=== PATIENT | male | born 1980 | race Hispanic/Latino ===

== ENCOUNTER 2017-03-31 23:04 | Observation (INO) | payer BC, OTHER ==
[~2017-03-31] VITALS: Ht 165.1 cm; Wt 86.2 kg
[2017-03-31 23:31] LABS: BASOPHILS # (AUTO) 0.1 (0.0-0.1); BASOPHILS % 0.7 % (0.0-1.0); EOSINOPHILS # (AUTO) 0.2 (0.0-0.4); EOSINOPHILS % 1.4 % (0.0-6.0); HEMATOCRIT 43.9 % (38.2-49.6); HEMOGLOBIN 14.9 g/dL (14.0-18.0); LYMPHOCYTES # (AUTO) 4.1 (1.0-3.2); LYMPHOCYTES % 35.3 % (18.0-39.1); MEAN CORPUSCULAR HEMOGLOBIN 28.2 pg (28-32); MEAN CORPUSCULAR HGB CONC 33.9 g/dL (31-35); MONOCYTES # (AUTO) 0.8 (0.2-0.8); MONOCYTES % 6.7 % (4.4-11.3); NEUTROPHILS # (AUTO) 6.5 (2.1-6.9); NEUTROPHILS % 55.7 % (38.7-80.0); PLATELET COUNT 251 x10e3/uL (140-360); RED BLOOD COUNT 5.29 x10e6/uL (4.3-5.7); RED CELL DISTRIBUTION WIDTH 13.3 % (11.7-14.4)
[2017-03-31 23:51] LABS: ALANINE AMINOTRANSFERASE 70 IU/L (0-55); ALBUMIN 4.1 g/dL (3.5-5.0); ALBUMIN/GLOBULIN RATIO 0.9 (0.8-2.0); ALKALINE PHOSPHATASE 78 IU/L (40-150); ANION GAP 19.5 mmol/L (8-16); BLOOD UREA NITROGEN 12 mg/dL (7-26); BUN/CREATININE RATIO 13 (6-25); CALCIUM 9.5 mg/dL (8.4-10.2); CARBON DIOXIDE 21 mmol/L (22-29); CHLORIDE 105 mmol/L (98-107); CREATINE KINASE 452 IU/L (30-200); CREATININE, SERUM 0.92 mg/dL (0.72-1.25); EST GLOMERULAR FILTRATION RATE > 60 ML/MIN (60-); GLUCOSE 120 mg/dL (74-118); POTASSIUM 3.5 mmol/L (3.5-5.1); SODIUM 142 mmol/L (136-145)
[2017-03-31 23:54] LABS: TROPONIN I < 0.05 ng/mL (0.0-0.40)
--- NOTE | 2017-04-01 00:21 | Diagnostic Imaging Report ---
CHEST SINGLE (PORTABLE), 03/31/2017 11:10 PM Technique: CHEST SINGLE (PORTABLE) Comparison: 03/17/2016 Clinical history: Chest pain Findings: Unremarkable appearance of the heart, mediastinum, lungs and pleural spaces for technique. Impression: 1. Lines/Tubes: None 2. No acute abnormality. Signed by: Dr Nuris Barajas MD on 04/01/2017 12:18 AM
[2017-04-01 00:35] LABS: BILIRUBIN,URINE NEGATIVE (NEGATIVE); KETONES,URINE NEGATIVE (NEGATIVE); LEUKOCYTE ESTERASE ,URINE NEGATIVE (NEGATIVE); NITRITE,URINE NEGATIVE (NEGATIVE); PROTEIN,URINE DIPSTICK NEGATIVE (NEGATIVE); URINE UROBILINOGEN 0.2 mg/dL (0.2 - 1)
[2017-04-01 00:36] LABS: CLARITY,URINE HAZY (CLEAR); COLOR,URINE YELLOW (YELLOW)
[2017-04-01 00:39] LABS: AMPHETAMINES SCREEN,URINE NEGATIVE (NEGATIVE); BENZODIAZEPINES SCREEN,URINE NEGATIVE (NEGATIVE); CANNABINOIDS SCREEN,URINE NEGATIVE (NEGATIVE); PHENCYCLIDINE SCREEN,URINE NEGATIVE (NEGATIVE)
[2017-04-01 00:47] LABS: BACTERIA,URINE FEW /HPF; EPITHELIAL CELLS,URINE RARE /LPF; MUCUS,URINE MODERATE (RARE); RBC,URINE 0-5 /HPF (0-5); WBC,URINE (MAN) 0-5 /HPF (0-5)
[2017-04-01] MEDS ORDERED: ONDANSETRON HCL INJ 2 MG/ML VIAL IV PRN (01:45)
[2017-04-01] MEDS ORDERED: SODIUM CHLORIDE FLUSH 10 ML SYR INJ PRN (01:45)
[2017-04-01] MEDS ORDERED: MORPHINE SULFATE 2 MG/ML SYR IV PRN (01:45)
[2017-04-01] MEDS: FAMOTIDINE 20 MG/2 ML VIAL IV SCH ×2 (02:51→13:58)
[2017-04-01] MEDS: ASPIRIN 81 MG CHEW TAB PO ONE ×2 (02:51→03:03)
[2017-04-01 03:25] VITALS: BP 126/60
[2017-04-01 03:42] VITALS: BP 126/60
[2017-04-01] MEDS ORDERED: LEVOTHYROXINE112 MCG PO (05:17)
[2017-04-01 07:59] VITALS: BP 121/75
[2017-04-01] MEDS ORDERED: ASPIRIN 81 MG ENTERIC COATED PO SCH (09:00)
[2017-04-01 09:39] LABS: CREATINE KINASE MB 2.6 ng/mL (0.00-5.00); TROPONIN I 0.008 ng/mL (0-0.300)
[2017-04-01 12:15] VITALS: BP 126/66
[2017-04-01 15:33] VITALS: BP 128/61
[2017-04-01 17:51] LABS: CREATINE KINASE MB 2.2 ng/mL (0.00-5.00); TROPONIN I 0.012 ng/mL (0-0.300)
[2017-04-01] MEDS ORDERED: REGLAN10 MG PO (17:57)
[2017-04-01] MEDS ORDERED: NEXIUM40 MG PO (17:57)
--- NOTE | 2017-04-01 19:14 | History and Physical ---
SHORTSTAY SUMMARY PRIMARY CARE PROVIDER: At the [facility]. ADMITTING DIAGNOSES: 1. Chest pain rule out acute coronary syndrome. 2. Gastroesophageal reflux disease. 3. Hypothyroidism due to history of thyroidectomy. DISCHARGE DIAGNOSES 1. Chest pain rule out acute coronary syndrome. 2. Gastroesophageal reflux disease. 3. Hypothyroidism due to history of thyroidectomy. 4. Myocardial infarction ruled out. BRIEF HISTORY: Mr. Capone is a 37-year-old gentleman who has been having intermittent chest pain for the last couple of weeks, not particularly brought on by exertion. He seems to have issues in the morning with nausea and vomiting of mucus, all consistent with untreated gastroesophageal reflux. REVIEW OF SYSTEMS: He denies fever, chills or weight loss. Denies sinus congestion or sore throat. He has the chest pain as noted but it is atypical. Denies palpitations. He denies shortness of breath, wheezing or cough. Denies abdominal pain, nausea, vomiting or melena. He does have some symptoms of acid reflux. He denies dysuria or flank pain. Denies rash or pruritus. Denies bleeding or bruising. Denies headache, vertigo or loss of consciousness. He denies depression, agitation, homicidal or suicidal ideation. PAST MEDICAL HISTORY: Significant for hypothyroidism. The patient has a history of Grave's disease and had a thyroidectomy along with radioactive iodine ablation and is currently on levothyroxine 137 mcg daily. ALLERGIES: NO KNOWN DRUG ALLERGIES. FAMILY HISTORY: Significant for father with myocardial infarction at age 50. SOCIAL HISTORY: The patient is . Dutch is his primary language. He does smoke, drink or use illegal drugs. He is generally independently functioning. PHYSICAL EXAM: PSYCHIATRIC: He is alert and oriented times 3 with normal mood and affect. CONSTITUTIONAL: He has a normal body habitus. Is in no acute distress. VITAL SIGNS: Blood pressure 128/61. Pulse 67 and regular. Respiratory rate 16. O2 sat 99%. Temperature 97.1. HEENT: Head is atraumatic. His eyes are anicteric with clear conjunctivae. Ears and nares are without erythema or discharge. Oropharynx is clear. NECK: Is supple with no mass or thyromegaly. LYMPHATIC SYSTEM: He has no palpable cervical, axillary or inguinal adenopathy. CARDIOVASCULAR: Heart has a regular rate and rhythm without murmur or extra heart sound. He has no carotid bruit. Has no peripheral edema. Has palpable dorsal pedal pulses. RESPIRATORY: Clear to auscultation and percussion with normal respiratory effort. GASTROINTESTINAL: Abdomen is soft without organomegaly, masses or tenderness. Has normal bowel sounds present. CUTANEOUS: His skin is warm and dry to touch with no rash or skin breakdown. MUSCULOSKELETAL: Joints are in normal alignment without erythema or swelling. Has no calf tenderness. NEUROLOGIC: Exam is nonfocal with intact cranial nerves and no motor or sensory deficits. DIAGNOSTIC STUDIES: Chest x-ray shows no acute disease. UA is clear. UDS is negative. EKG is normal. Troponin less than 0.05 and 0.008. D-dimer less than 100. His chemistry profile shows normal electrolytes. CO2 21. Creatinine 0.92. BUN 12. Glucose 120. Calcium 9.5. Transaminase is slightly elevated with AST of 52 and ALT of 70. Bilirubin and alkaline phos are both normal. CBC shows a white count of 11.6 with a normal differential. Hemoglobin 14.9, hematocrit 43.9 and platelet count 251,000. IMPRESSION AND PLAN 1. Chest pain. Rule out acute coronary syndrome. The patient will get serial cardiac enzymes to rule out myocardial infarction. 2. Hypothyroidism. Will continue his thyroid medication. 3. Gastroesophageal reflux. The patient has been started on Pepcid 20 mg twice daily. HOSPITAL COURSE: The patient was admitted for observation overnight. Serial cardiac enzymes and EKGs were negative for any myocardial injury. The patient was feeling much better, asymptomatic the following day after receiving Pepcid, confirming suspicion that his symptoms are more related to gastroesophageal reflux than anything else. The patient will be sent home to continue his levothyroxine. He will also be sent home on Pepcid, Nexium and Reglan for acid reflux with instructions to resume a regular diet and activity as tolerated and follow up with his PCP within 2 weeks to possibly schedule an outpatient stress test. Job#: [id number]
== END 2017-04-01 18:29 | disposition home or self-care (01) ==
LOC: ER 23:04 → IMCU 04-01 02:58
PROVIDERS: ADMIT Internal Medicine; ATTEND Internal Medicine
DX: R07.89 Other chest pain (principal); K21.9 Gastro-esophageal reflux disease without esophagitis; E89.0 Postprocedural hypothyroidism
CPT/HCPCS: 36415; 71010; 80053; 80307; 81001; 82550 ×2; 82553 ×2; 84484 ×2; 85025; 85379; 93005; 99284; G0378